=== PATIENT | female | born 1975 | race Caucasian/White ===

== ENCOUNTER → 2018-12-05 | Outpatient (CLI) | payer OTHER ==
[~2018-12-05] MED LIST: OBSTETRIX EC1 TAB.EC PO
== END | disposition home or self-care (01) ==
LOC: MAMO-SONO 15:06 → TOM 15:06
DX: R10.31 Right lower quadrant pain (principal)

== ENCOUNTER 2024-09-14 08:33 | Outpatient (CLI) | payer OTHER | END 2024-09-14 08:36 | disposition home or self-care (01) | LOC: SONOGRAMA 08:33 | PROVIDERS: ATTEND Pathology Anatomic Pathology | DX: R22.42 Localized swelling, mass and lump, left lower limb (principal) ==